=== PATIENT | female | born 1930 | race Caucasian/White ===

== ENCOUNTER 2016-08-15 09:26 | Inpatient (IN) | payer OTHER, MEDICAID ==
[~2016-08-15] VITALS: Ht 165.1 cm; Wt 44.9 kg
[2016-08-15] VITALS (7 sets, daily range): BP systolic 95–150; BP diastolic 65–88; PULSE 65–98; RESP 20–22; TEMP 97.8–100; O2SAT 96–100
[2016-08-15 10:20] LABS: HEMATOCRIT 38.1 % (36-48); HEMOGLOBIN 12.4 g/dL (12.0-16.0); MEAN CORPUSCULAR HEMOGLOBIN 28 pg (27-31); MEAN CORPUSCULAR HGB CONC 32 % (32-36); MEAN CORPUSCULAR VOLUME 87 fL (79.0-98.0); PLATELET COUNT (AUTO) 404 K/uL (130-430); RED CELL DISTRIBUTION WIDTH 13.2 % (9.0-15.0); WHITE BLOOD COUNT (AUTO) 13.1 K/uL (4.8-10.8)
[2016-08-15 10:28] LABS: ANION GAP 14 (5-15); CHLORIDE 98 mmol/L (98-107); CREATININE 1.02 mg/dL (0.55-1.30); GLUCOSE 280 mg/dL (70-99); UREA NITROGEN, BLOOD 16 mg/dL (8-21)
[2016-08-15 10:29] LABS: ALANINE AMINOTRANSFERASE 19 U/L (12-78); ALBUMIN 3.5 g/dL (3.4-4.8); ASPARTATE AMINOTRANSFERASE 13 U/L (10-37); TOTAL BILIRUBIN 0.3 mg/dL (0.0-1.0); TOTAL PROTEIN, SERUM 8.6 g/dL (6.4-8.3)
[2016-08-15] MEDS ORDERED: NACL 0.9% 1,000 ML IV ONE (10:30)
[2016-08-15] MEDS ORDERED: LORazepam 2 MG/ML VIAL (FOR ER USE) IVP ONE (10:30)
[2016-08-15 10:32] LABS: BILIRUBIN,URINE NEGATIVE (NEGATIVE); BLOOD, URINE 1+ (NEGATIVE); CLARITY/URINE HAZY (CLEAR); COLOR,URINE YELLOW (YELLOW); GLUCOSE,URINE NEGATIVE (NEGATIVE); KETONES,URINE TRACE (NEGATIVE); LEUKOCYTE ESTERASE ,URINE 1+ (NEGATIVE); NITRITE, URINE NEGATIVE (NEGATIVE); PROTEIN URINE 2+ (NEGATIVE); UROBILINOGEN,URINE 0.2 (0.2-1.0)
[2016-08-15] MEDS ORDERED: HYDR-4100 PO (10:32)
[2016-08-15] MEDS ORDERED: SACC250C3 PO (10:32)
[2016-08-15] MEDS ORDERED: AMLO5TAB4 PO (10:32)
[2016-08-15] MEDS ORDERED: ACET325T53 PO (10:32)
[2016-08-15] MEDS ORDERED: DONE10TA44 PO (10:32)
[2016-08-15] MEDS ORDERED: LORA-258 PO (10:32)
[2016-08-15] MEDS ORDERED: SSREG SUBCUT (10:32)
[2016-08-15] MEDS ORDERED: GLIP-172 PO (10:32)
[2016-08-15] MEDS ORDERED: DOCU250C PO (10:32)
[2016-08-15] MEDS ORDERED: METF-716 PO (10:32)
[2016-08-15] MEDS ORDERED: HYDR-4037 PO (10:32)
[2016-08-15] MEDS ORDERED: ESCI5TAB PO (10:32)
[2016-08-15] MEDS ORDERED: INSU100I20 SQ (10:32)
[2016-08-15] MEDS ORDERED: IPRA4AER INH (10:32)
[2016-08-15] MEDS ORDERED: MULT-1117 PO (10:32)
[2016-08-15] MEDS ORDERED: MEMA5TAB PO (10:32)
[2016-08-15] MEDS ORDERED: MAGN400O4 PO (10:32)
[2016-08-15 10:37] LABS: SODIUM SERUM 135 mmol/L (136-145)
[2016-08-15 10:48] LABS: ATYPICAL LYMPHOCYTES % 4 % (0-0); BAND % (MANUAL) 5 % (0-6); BASOPHILS % (MANUAL) 0 % (0-2); EOSINOPHILS % (MANUAL) 0 % (0-7); LYMPHOCYTES % (MANUAL) 33 % (20-46); MONOCYTES % (MANUAL) 4 % (0-11)
[2016-08-15 10:51] LABS: RBC,URINE 0-3 /HPF (0-3)
[2016-08-15 10:52] LABS: BACTERIA,URINE MANY /HPF (None Seen); MUCUS,URINE None Seen /LPF (None Seen)
[2016-08-15] MEDS ORDERED: PIPERACILLIN/TAZO 3.375 GM in NS 50 ML IV ONE (11:00)
[2016-08-15] MEDS ORDERED: NS 500 ML IV ONE (11:00)
[2016-08-15] MEDS ORDERED: PIPERACILLIN/TAZOBACTAM 3.375 GM/VIAL (ZOSYN) IV ONE (11:01)
[2016-08-15] MEDS: NACL 0.9% 1,000 ML IV SCH (11:16)
[2016-08-15] MEDS: LEVOFLOXACIN 250 MG/D5W 50 ML IV SCH (11:30)
[2016-08-15] MEDS ORDERED: LEVOFLOXACIN 500 MG/D5W 100 ML IV ONE (12:30)
[2016-08-15] MEDS ORDERED: MAGNESIUM SULFATE 50 ML IV PRN (14:45)
[2016-08-15] MEDS ORDERED: MORPHINE 2 MG/ML INJ. SYRINGE IVP PRN (14:45)
[2016-08-15] MEDS ORDERED: IPRATROPIUM/ALBUTEROL SULFATE 120 PUFFS/4 GM INH INH PRN (14:45)
[2016-08-15] MEDS ORDERED: HYDROcodone/ACETAMIN 10-325 MG TAB PO PRN (14:45)
[2016-08-15] MEDS ORDERED: ONDANSETRON HCL 4 MG/2 ML VIAL IVP PRN (14:45)
[2016-08-15] MEDS ORDERED: ACETAMINOPHEN 325 MG TABLET PO PRN (14:45)
[2016-08-15] MEDS ORDERED: DEXTROSE 50% JECT 50 ML DISP.SYRIN IVP PRN (14:45)
[2016-08-15] MEDS ORDERED: LORazepam 2 MG/ML VIAL IVP PRN (14:45)
[2016-08-15] MEDS ORDERED: DOCUSATE SODIUM 100 MG CAPSULE PO PRN (14:45)
[2016-08-15] MEDS ORDERED: IPRATROPIUM/ALBUTEROL SULFATE 3 ML AMPUL.NEB INH PRN (18:30)
[2016-08-15] MEDS: LORazepam 2 MG/ML VIAL IVP PRN (20:29)
[2016-08-15] MEDS: CITALOPRAM HYDROBROMIDE 20 MG TABLET PO SCH (20:39)
[2016-08-15] MEDS: glipiZIDE XL 5 MG TAB ( GLUCOTROL XL) PO SCH (20:39)
[2016-08-15] MEDS: DONEPEZIL HCL 5 MG TABLET (ARICEPT) PO SCH (20:39)
[2016-08-15] MEDS: INSULIN ASPART 100 UNITS/ML, 10 ML VIAL (NovoLOG) SUBCUT PRN (20:46)
[2016-08-15] MEDS: HEPARIN SODIUM,PORCINE 5000 UNITS/ML VIAL SUBCUT SCH (20:47)
[2016-08-15] MEDS ORDERED: ZOLPIDEM TARTRATE 5 MG TABLET PO PRN (21:00)
[2016-08-15] MEDS ORDERED: ESCITALOPRAM OXALATE 10 MG TABLET PO SCH (21:00)
[2016-08-16] MEDS: NACL 0.9% 1,000 ML IV SCH (00:16)
[2016-08-16 04:45] VITALS: BP 114/69; PULSE 92; RESP 20; TEMP 98.2; O2SAT 97
[2016-08-16] MEDS ORDERED: DEXTROSE 50% JECT 50 ML DISP.SYRIN IVP ONE (06:30)
[2016-08-16 07:25] LABS: BASOPHILS % (AUTO) 0.4 % (0.0-2.0); EOSINOPHILS # (AUTO) 0.1 K/uL (0.0-0.4); EOSINOPHILS % (AUTO) 1.6 % (0.0-4.0); HEMOGLOBIN 10.2 g/dL (12.0-16.0); LYMPHOCYTES # (AUTO) 3.2 K/uL (1.0-5.5); LYMPHOCYTES % (AUTO) 36.8 % (20.5-51.5); MEAN CORPUSCULAR HEMOGLOBIN 29 pg (27-31); MEAN CORPUSCULAR HGB CONC 33 % (32-36); MEAN CORPUSCULAR VOLUME 87 fL (79.0-98.0); MONOCYTES # (AUTO) 0.6 K/uL (0.0-1.0); MONOCYTES % (AUTO) 7.2 % (1.7-9.3); NEUTROPHILS # (AUTO) 4.8 K/uL (1.8-7.7); PLATELET COUNT (AUTO) 298 K/uL (130-430); RED BLOOD CELL COUNT(AUTO) 3.57 MIL/uL (4.2-6.2); WHITE BLOOD COUNT (AUTO) 8.8 K/uL (4.8-10.8)
[2016-08-16 07:29] LABS: ANION GAP 6 (5-15); CALCIUM 8.8 mg/dL (8.4-11.0); CHLORIDE 106 mmol/L (98-107); CREATININE 0.62 mg/dL (0.55-1.30); POTASSIUM 3.3 mmol/L (3.5-5.1); SODIUM SERUM 138 mmol/L (136-145); UREA NITROGEN, BLOOD 11 mg/dL (8-21)
[2016-08-16 07:48] LABS: GLUCOSE 41 mg/dL (70-99)
[2016-08-16 08:38] VITALS: BP 150/67; PULSE 72; RESP 16; TEMP 98.5; O2SAT 98
[2016-08-16] MEDS: amLODIPine BESYLATE 5 MG TABLET PO SCH ×2 (09:00→10:25)
[2016-08-16] MEDS: DOCUSATE SODIUM 250 MG CAPSULE PO SCH ×2 (09:00→10:24)
[2016-08-16] MEDS: HEPARIN SODIUM,PORCINE 5000 UNITS/ML VIAL SUBCUT SCH ×3 (09:00→22:30)
[2016-08-16] MEDS: glipiZIDE XL 5 MG TAB ( GLUCOTROL XL) PO SCH ×2 (09:00→22:30)
[2016-08-16] MEDS: MEMANTINE HCL 5 MG TABLET PO SCH ×2 (09:00→10:25)
[2016-08-16] MEDS: D5NS 1,000 ML IV SCH (10:26)
[2016-08-16 12:09] VITALS: BP 126/57; PULSE 60; RESP 16; TEMP 98.1; O2SAT 100
[2016-08-16] MEDS: LEVOFLOXACIN 250 MG/D5W 50 ML IV SCH (12:11)
[2016-08-16 15:39] VITALS: BP 139/55; PULSE 78; RESP 16; TEMP 97.7; O2SAT 100
[2016-08-16 16:17] VITALS: Ht 165.1 cm; Wt 44.9 kg
[2016-08-16 20:00] VITALS: BP 132/55; PULSE 85; RESP 18; TEMP 98; O2SAT 97
[2016-08-16] MEDS: POTASSIUM CHLORIDE 10 MEQ TAB.PRT.SR PO PRN (21:30)
[2016-08-16] MEDS: CITALOPRAM HYDROBROMIDE 20 MG TABLET PO SCH (21:31)
[2016-08-16] MEDS: DONEPEZIL HCL 5 MG TABLET (ARICEPT) PO SCH (21:31)
[2016-08-16] MEDS: INSULIN ASPART 100 UNITS/ML, 10 ML VIAL (NovoLOG) SUBCUT PRN (22:31)
[2016-08-16] MEDS: LORazepam 2 MG/ML VIAL IVP PRN (22:32)
[2016-08-16 22:44] VITALS: BP 132/55; PULSE 85; RESP 18; TEMP 98; O2SAT 97
[2016-08-17] MEDS: D5NS 1,000 ML IV SCH ×2 (00:28→05:40)
[2016-08-17 01:06] VITALS: BP 132/66; PULSE 88; RESP 18; TEMP 98.8; O2SAT 98
[2016-08-17 04:35] VITALS: BP 165/76; PULSE 74; RESP 20; TEMP 97.6; O2SAT 97
[2016-08-17] MEDS: INSULIN ASPART 100 UNITS/ML, 10 ML VIAL (NovoLOG) SUBCUT PRN ×3 (06:28→17:53)
[2016-08-17 08:04] LABS: BASOPHILS # (AUTO) 0.1 K/uL (0.0-0.2); BASOPHILS % (AUTO) 0.5 % (0.0-2.0); EOSINOPHILS # (AUTO) 0.2 K/uL (0.0-0.4); EOSINOPHILS % (AUTO) 2.2 % (0.0-4.0); HEMATOCRIT 32.5 % (36-48); HEMOGLOBIN 10.9 g/dL (12.0-16.0); LYMPHOCYTES # (AUTO) 4.3 K/uL (1.0-5.5); LYMPHOCYTES % (AUTO) 38.5 % (20.5-51.5); MEAN CORPUSCULAR HEMOGLOBIN 29 pg (27-31); MEAN CORPUSCULAR HGB CONC 34 % (32-36); MEAN CORPUSCULAR VOLUME 86 fL (79.0-98.0); MONOCYTES # (AUTO) 0.6 K/uL (0.0-1.0); MONOCYTES % (AUTO) 5.7 % (1.7-9.3); NEUTROPHILS # (AUTO) 5.9 K/uL (1.8-7.7); NEUTROPHILS % (AUTO) 53.1 % (40.0-70.0); PLATELET COUNT (AUTO) 307 K/uL (130-430); RED BLOOD CELL COUNT(AUTO) 3.78 MIL/uL (4.2-6.2); RED CELL DISTRIBUTION WIDTH 13.2 % (9.0-15.0); WHITE BLOOD COUNT (AUTO) 11.1 K/uL (4.8-10.8)
[2016-08-17 08:10] VITALS: BP 139/89; PULSE 101; RESP 18; TEMP 99.1; O2SAT 99
[2016-08-17 08:14] LABS: ANION GAP 9 (5-15); CALCIUM 8.9 mg/dL (8.4-11.0); CHLORIDE 105 mmol/L (98-107); CREATININE 0.86 mg/dL (0.55-1.30); GLUCOSE 153 mg/dL (70-99); POTASSIUM 3.6 mmol/L (3.5-5.1); SODIUM SERUM 139 mmol/L (136-145); UREA NITROGEN, BLOOD 6 mg/dL (8-21)
[2016-08-17] MEDS: HEPARIN SODIUM,PORCINE 5000 UNITS/ML VIAL SUBCUT SCH ×3 (10:21→22:08)
[2016-08-17] MEDS: DOCUSATE SODIUM 250 MG CAPSULE PO SCH (10:28)
[2016-08-17] MEDS: amLODIPine BESYLATE 5 MG TABLET PO SCH (10:29)
[2016-08-17] MEDS: MEMANTINE HCL 5 MG TABLET PO SCH (10:29)
[2016-08-17] MEDS: glipiZIDE XL 5 MG TAB ( GLUCOTROL XL) PO SCH ×2 (10:35→22:02)
[2016-08-17 12:00] VITALS: BP 140/63; PULSE 78; RESP 18; TEMP 98.7; O2SAT 97
[2016-08-17 16:45] VITALS: BP 156/75; PULSE 91; RESP 20; TEMP 98.8; O2SAT 95
[2016-08-17] MEDS: DONEPEZIL HCL 5 MG TABLET (ARICEPT) PO SCH (22:02)
[2016-08-17] MEDS: QUEtiapine FUMARATE 25 MG TABLET PO SCH (22:03)
[2016-08-17] MEDS: CITALOPRAM HYDROBROMIDE 20 MG TABLET PO SCH (22:03)
[2016-08-17 23:34] VITALS: BP 168/82
[2016-08-18 04:29] VITALS: BP 127/54; PULSE 84; RESP 20; TEMP 98.9; O2SAT 96
[2016-08-18 06:22] VITALS: BP 134/69; PULSE 78; RESP 18; TEMP 98.4; O2SAT 97
[2016-08-18] MEDS: INSULIN ASPART 100 UNITS/ML, 10 ML VIAL (NovoLOG) SUBCUT PRN ×4 (06:45→21:58)
[2016-08-18 06:53] LABS: BASOPHILS # (AUTO) 0.1 K/uL (0.0-0.2); BASOPHILS % (AUTO) 0.6 % (0.0-2.0); EOSINOPHILS # (AUTO) 0.2 K/uL (0.0-0.4); EOSINOPHILS % (AUTO) 1.8 % (0.0-4.0); HEMATOCRIT 29.8 % (36-48); HEMOGLOBIN 9.8 g/dL (12.0-16.0); LYMPHOCYTES # (AUTO) 2.2 K/uL (1.0-5.5); LYMPHOCYTES % (AUTO) 19.7 % (20.5-51.5); MEAN CORPUSCULAR HEMOGLOBIN 28 pg (27-31); MEAN CORPUSCULAR HGB CONC 33 % (32-36); MEAN CORPUSCULAR VOLUME 86 fL (79.0-98.0); MONOCYTES # (AUTO) 0.6 K/uL (0.0-1.0); MONOCYTES % (AUTO) 5.8 % (1.7-9.3); NEUTROPHILS # (AUTO) 7.9 K/uL (1.8-7.7); NEUTROPHILS % (AUTO) 72.1 % (40.0-70.0); PLATELET COUNT (AUTO) 260 K/uL (130-430); RED BLOOD CELL COUNT(AUTO) 3.46 MIL/uL (4.2-6.2); RED CELL DISTRIBUTION WIDTH 13.1 % (9.0-15.0)
[2016-08-18 07:21] LABS: ANION GAP 8 (5-15); CALCIUM 8.4 mg/dL (8.4-11.0); CHLORIDE 102 mmol/L (98-107); CREATININE 0.73 mg/dL (0.55-1.30); GLUCOSE 278 mg/dL (70-99); POTASSIUM 3.1 mmol/L (3.5-5.1); SODIUM SERUM 133 mmol/L (136-145); UREA NITROGEN, BLOOD 8 mg/dL (8-21)
[2016-08-18] MEDS: DOCUSATE SODIUM 250 MG CAPSULE PO SCH (08:02)
[2016-08-18] MEDS: QUEtiapine FUMARATE 25 MG TABLET PO SCH ×2 (08:02→21:59)
[2016-08-18] MEDS: MEMANTINE HCL 5 MG TABLET PO SCH (08:03)
[2016-08-18] MEDS: glipiZIDE XL 5 MG TAB ( GLUCOTROL XL) PO SCH ×2 (10:22→22:00)
[2016-08-18] MEDS: amLODIPine BESYLATE 5 MG TABLET PO SCH (10:23)
[2016-08-18] MEDS: HEPARIN SODIUM,PORCINE 5000 UNITS/ML VIAL SUBCUT SCH ×2 (10:28→21:57)
[2016-08-18] MEDS: POTASSIUM CHLORIDE 10 MEQ TAB.PRT.SR PO PRN (10:39)
[2016-08-18 11:00] VITALS: BP 148/61; PULSE 83
[2016-08-18 11:24] VITALS: BP 148/61; PULSE 83; RESP 20; TEMP 98.2; O2SAT 97
[2016-08-18] MEDS: LEVOFLOXACIN 250 MG/D5W 50 ML IV SCH (14:53)
[2016-08-18 15:55] VITALS: BP 147/65; PULSE 97; RESP 16; TEMP 98.4; O2SAT 97
[2016-08-18] MEDS: LORazepam 2 MG/ML VIAL IVP PRN (19:34)
[2016-08-18 19:49] VITALS: BP 142/66; PULSE 90; RESP 15; TEMP 99; O2SAT 93
[2016-08-18] MEDS: CITALOPRAM HYDROBROMIDE 20 MG TABLET PO SCH (22:01)
[2016-08-18] MEDS: DONEPEZIL HCL 5 MG TABLET (ARICEPT) PO SCH (22:01)
[2016-08-19] MEDS: D5NS 1,000 ML IV SCH
[2016-08-19 01:22] VITALS: BP 135/61; PULSE 78; RESP 17; TEMP 97.6; O2SAT 96
[2016-08-19 03:58] VITALS: BP 129/56; PULSE 80; RESP 18; TEMP 98.2; O2SAT 96
[2016-08-19 07:33] LABS: ANION GAP 7 (5-15); CALCIUM 8.2 mg/dL (8.4-11.0); CHLORIDE 108 mmol/L (98-107); CREATININE 0.86 mg/dL (0.55-1.30); GLUCOSE 202 mg/dL (70-99); POTASSIUM 3.8 mmol/L (3.5-5.1); SODIUM SERUM 137 mmol/L (136-145); UREA NITROGEN, BLOOD 14 mg/dL (8-21)
[2016-08-19 07:45] LABS: BASOPHILS # (AUTO) 0.1 K/uL (0.0-0.2); BASOPHILS % (AUTO) 0.8 % (0.0-2.0); EOSINOPHILS # (AUTO) 0.4 K/uL (0.0-0.4); EOSINOPHILS % (AUTO) 4.4 % (0.0-4.0); HEMATOCRIT 26.3 % (36-48); HEMOGLOBIN 8.4 g/dL (12.0-16.0); LYMPHOCYTES # (AUTO) 2.8 K/uL (1.0-5.5); LYMPHOCYTES % (AUTO) 27.9 % (20.5-51.5); MEAN CORPUSCULAR HEMOGLOBIN 28 pg (27-31); MEAN CORPUSCULAR HGB CONC 32 % (32-36); MEAN CORPUSCULAR VOLUME 87 fL (79.0-98.0); MONOCYTES # (AUTO) 0.7 K/uL (0.0-1.0); MONOCYTES % (AUTO) 7.1 % (1.7-9.3); NEUTROPHILS # (AUTO) 6.1 K/uL (1.8-7.7); NEUTROPHILS % (AUTO) 59.8 % (40.0-70.0); PLATELET COUNT (AUTO) 238 K/uL (130-430); RED BLOOD CELL COUNT(AUTO) 3.02 MIL/uL (4.2-6.2); RED CELL DISTRIBUTION WIDTH 13.6 % (9.0-15.0); WHITE BLOOD COUNT (AUTO) 10.1 K/uL (4.8-10.8)
[2016-08-19] MEDS: glipiZIDE XL 5 MG TAB ( GLUCOTROL XL) PO SCH (09:00)
[2016-08-19] MEDS: DOCUSATE SODIUM 250 MG CAPSULE PO SCH (09:00)
[2016-08-19] MEDS: QUEtiapine FUMARATE 25 MG TABLET PO SCH (09:00)
[2016-08-19] MEDS: HEPARIN SODIUM,PORCINE 5000 UNITS/ML VIAL SUBCUT SCH (09:00)
[2016-08-19] MEDS: MEMANTINE HCL 5 MG TABLET PO SCH (09:00)
[2016-08-19] MEDS: amLODIPine BESYLATE 5 MG TABLET PO SCH (09:00)
[2016-08-19] MEDS: LEVOFLOXACIN 250 MG/D5W 50 ML IV SCH (11:51)
[2016-08-19 15:59] VITALS: BP_SYST 127; BP_SYST 135; BP_DIAS 50; BP_DIAS 66; PULSE 94; RESP 17; TEMP 97.5; O2SAT 94
[2016-08-19 16:45] VITALS: BP 121/82; PULSE 103; RESP 18; TEMP 98.6; O2SAT 95
== END 2016-08-19 18:10 | DRG 871 ==
LOC: SED 09:26 → SMU 11:16
PROVIDERS: ADMIT General Practice; ATTEND General Practice
DX: A41.9 Sepsis, unspecified organism (principal); G93.41 Metabolic encephalopathy; N39.0 Urinary tract infection, site not specified; Z68.1 Body mass index [BMI] 19.9 or less, adult; F29 Unspecified psychosis not due to a substance or known physiological condition; E87.6 Hypokalemia; E11.65 Type 2 diabetes mellitus with hyperglycemia; I10 Essential (primary) hypertension; F41.8 Other specified anxiety disorders; G30.9 Alzheimer's disease, unspecified; F02.80 Dementia in other diseases classified elsewhere, unspecified severity, without behavioral disturbance, psychotic disturbance, mood disturbance, and anxiety; R63.0 Anorexia; B96.20 Unspecified Escherichia coli [E. coli] as the cause of diseases classified elsewhere; F41.9 Anxiety disorder, unspecified; F32.9 Major depressive disorder, single episode, unspecified; Z78.1 Physical restraint status; Z79.899 Other long term (current) drug therapy
CPT/HCPCS: 36415; 71010; 80048; 80053; 81000-TC; 82962; 83605; 83735-TC; 84484; 85007; 85025; 85027; 87040-TC; 87081; 87086; 87186-TC; 96361; 96374; 99291; J1644; J1815; J1956; J2060; J2543; J3475; J7030; J7040; J7042